=== PATIENT | male | born 1945 | race Caucasian/White ===

== ENCOUNTER 2020-10-24 06:16 | Inpatient (IN) | payer MEDICARE, OTHER ==
[2020-10-24 06:58] LABS: BASOPHIL 0.3 % (0-2); EOSINOPHIL 0.1 % (0-7); HGB 18.6 g/dl (13.2-18.0); LYMPHOCYTE 2.8 % (15-48); MCH 33.6 pg (25.0-31.0); MCHC 35.1 g/dL (32.0-36.0); MCV 95.8 fL (78.0-100.0); MONOCYTE 9.5 % (0-12); MPV 11.2 fL (6.0-9.5); NEUTROPHIL 86.5 % (41-80); NRBC 0; PLT 175 K/uL (150-400); RBC 5.53 M/uL (4.70-6.00); RDW 13.2 % (11.5-14.0)
[2020-10-24 07:05] LABS: WBC 19.8 K/uL (4.0-10.5)
[2020-10-24 07:17] LABS: INR 1.24 (0.9-1.2); PROTHROMBIN TIME 14.8 SECONDS (11.4-13.6); PTT 27.5 SECONDS (22.2-34.7)
[2020-10-24 07:37] LABS: ALBUMIN 3.5 g/dL (3.4-5.0); ALKALINE PHOSHATASE 126 U/L (46-116); ALT 103 U/L (16-63); AST 202 U/L (15-37); BILIRUBIN - TOTAL 2.6 mg/dL (0.2-1.0); BUN 32 mg/dL (7-18); BUN/CREAT RATIO (CALC) 18.4 RATIO; CHLORIDE 98 mmol/L (98-107); CO2 (BICARBONATE) 17 mmol/L (21-32); CPK 481 U/L (39-308); CREATININE 1.74 mg/dL (0.67-1.17); GLOBULIN (CALCULATION) 3.8 g/dL; GLUCOSE 287 mg/dL (74-106); LACTIC ACID 3.4 mmol/L (0.4-1.9); LIPASE 58 U/L (73-393); TOTAL PROTEIN 7.3 g/dL (6.4-8.2)
[2020-10-24 11:01] LABS: BILIRUBIN NEGATIVE (NEGATIVE); BLOOD 3+ Ery/uL (NEGATIVE); COLOR YELLOW (YELLOW); GLUCOSE (U) 3+ mg/dL (NORMAL); LEUKOCYTES NEGATIVE Leu/uL (NEGATIVE); NITRITE NEGATIVE (NEGATIVE); PROTEIN 2+ mg/dL (NEGATIVE); SPECIFIC GRAVITY >=1.030 (1.001-1.030); UROBILINOGEN 0.2 mg/dL (0.2-1.0); pH 5.5 (5.0-9.0)
[2020-10-24 11:05] LABS: ECSTASY (MDMA) NEGATIVE (NEGATIVE); MARIJUANA (THC) NEGATIVE (NEGATIVE); METHADONE NEGATIVE (NEGATIVE); OPIATES POSITIVE (NEGATIVE)
[2020-10-24 11:05] LABS: CLARITY HAZY (CLEAR)
[2020-10-24 11:06] LABS: AMPHETAMINES NEGATIVE (NEGATIVE); BARBITURATES NEGATIVE (NEGATIVE); OXYCODONE NEGATIVE (NEGATIVE)
[2020-10-24 11:24] LABS: SQUAMOUS EPITHELIAL CELLS RARE
[2020-10-24 11:25] LABS: GRANULAR CASTS TRACE
[2020-10-24] MEDS ORDERED: LASIX20 MG PO (16:35)
[2020-10-24] MEDS ORDERED: POTASSIUM CHLO20 ME1 PO (16:36)
[2020-10-24] MEDS ORDERED: COREG 6.25MG6.25 MG PO (16:36)
[2020-10-24] MEDS ORDERED: PLAVIX75 M1 PO (16:37)
[2020-10-24] MEDS ORDERED: ZESTRIL5 MG PO (16:37)
[2020-10-24] MEDS ORDERED: ELIQUIS5 MG PO (16:37)
[2020-10-24] MEDS ORDERED: METFORMIN HCL500 MG PO (16:38)
[2020-10-24] MEDS ORDERED: LIPITOR40 MG PO (16:38)
[2020-10-24] MEDS ORDERED: ISOSORBIDE MONO60 M1 PO (16:40)
[2020-10-25 06:20] LABS: BASOPHIL 0.3 % (0-2); EOSINOPHIL 0.4 % (0-7); HCT 52.5 % (42.0-52.0); HGB 17.8 g/dl (13.2-18.0); LYMPHOCYTE 3.6 % (15-48); MCH 33.3 pg (25.0-31.0); MCHC 33.9 g/dL (32.0-36.0); MCV 98.3 fL (78.0-100.0); MONOCYTE 9.2 % (0-12); MPV 11.3 fL (6.0-9.5); NEUTROPHIL 85.6 % (41-80); NRBC 0; PLT 150 K/uL (150-400); RBC 5.34 M/uL (4.70-6.00); RDW 13.4 % (11.5-14.0); WBC 23.8 K/uL (4.0-10.5)
[2020-10-25 06:50] LABS: BUN/CREAT RATIO (CALC) 20.9 RATIO; CREATININE 1.96 mg/dL (0.67-1.17); MAGNESIUM 1.9 mg/dL (1.8-2.4); POTASSIUM 4.4 mmol/L (3.5-5.1)
--- NOTE | 2020-10-25 10:17 | NUR ---
0900- PT WAS FORGET AT TIMES THIS AM BUT ALERT AND ORIENTED. PT WBC 23.8 ELEVATED FRM PRIOR. MD WAS NOTIFIED, PT IS ALSO IN AFIB WITH RATE AROUND 108. PT ASYMPTOMATIC IN ROOM. JOB ANALYSIS MANAGER'S REPORTED TO RN THAT THEY ATTEMPTED TO GET PT OUT OF BED AND PT WAS TOO WEAK. NOTIFIED AND ORDERED A PT/OT EVAL. PT REPORTED TO CORN HUSK BALER THAT HE DOESNT TAKE HIS HOME MEDS AND ITS " JUST BECAUSE HE DOESNT WANT TOO" PT WAS EDUCATED ON HOW IMPORTANT HIS MEDICINE WAS FOR HIS HEART AND BLOOD PRESSURE. PTS LACTIC WAS 3.4 ON ADMISSION AND A REPEAT WAS NOT DRAWN. NOTIFIED. PT IS ON THE LIST FOR AN ECHO TODAY.
--- NOTE | 2020-10-25 13:54 | NUR ---
NOTIFIED MD AT 1350 ABOUT ELEVATED WBC COUNT 23.8 AND LACTIC 3.2, NO REPEAT DRAWN, URINE WBC 1-5 H, MD ORDERED URINE CULTURE AND ROCEPHIN.
--- NOTE | 2020-10-25 16:53 | NUR ---
MD NOTIFIED ABOUT WBC 23.8, LACTIC 3.2, LOW DAILY URINE OUTPUT 200 CC ONLY, AND TEA COLORED URINE. MD ORDERED BOLUS 1000ML NS, ROCEPHIN, AND A REPEAT LACTIC FOR THE AM.
[2020-10-26 09:19] LABS: BASOPHIL 0.2 % (0-2); EOSINOPHIL 0 % (0-7); HCT 49.4 % (42.0-52.0); LYMPHOCYTE 3.9 % (15-48); MCH 32.8 pg (25.0-31.0); MCHC 32.4 g/dL (32.0-36.0); MCV 101.2 fL (78.0-100.0); MONOCYTE 7.2 % (0-12); MPV 10.9 fL (6.0-9.5); NEUTROPHIL 87.6 % (41-80); NRBC 0; PLT 144 K/uL (150-400); RBC 4.88 M/uL (4.70-6.00); RDW 13.5 % (11.5-14.0)
[2020-10-26 09:28] LABS: ALBUMIN 2.6 g/dL (3.4-5.0); BILIRUBIN - TOTAL 2.4 mg/dL (0.2-1.0); BUN/CREAT RATIO (CALC) 27.5 RATIO; CREATININE 1.82 mg/dL (0.67-1.17); GLOBULIN (CALCULATION) 3.7 g/dL; MAGNESIUM 1.8 mg/dL (1.8-2.4); POTASSIUM 4.6 mmol/L (3.5-5.1); TOTAL PROTEIN 6.3 g/dL (6.4-8.2)
--- NOTE | 2020-10-26 16:44 | NUR ---
THIS IS A 75 YEAR OLD REPORTS THAT HE HAS 2 ROOM MATES THAT LIVES WITH HIM. UP INTO RECENTLY HE WAS INDEPENDENT WITH ADL;S BUT DUE TO ACUTE ILLNESS (ELKE) ONE OF THE ROOMMATES HELPS WITH ADL'S. SHE COOKS AND HELPS GET TO SHOWER. HE REPORTS HE HAS NO DME HE USES CURRENTLY. WHEN I ASKED ABOUT HIS INTEREST FOR SKILLED REHAB AFTER THERAPY MADE DETERMINATION IF HE WOULD AGREE TO GO- HE REPLIED NO TO SKILLED THERAPY "I DO NOT LIKE THOSE PLACES". HE DID AGREE TO HAVE A HOME HEALTH AGENCY TO COME SEE HIM, HE DID NOT HAVE A PREFERENCE. HE WOULD LIKE TO HAVE ONE THAT ACCEPTED HIS INSURANCE. PER [facility]- [facility] WOULD NOT ACCEPT [facility] WILL NOT ACCEPT [facility] AT THIS TIME. [facility] TRYING TO REACH OUT TO OTHER FACILITIES TO SEE IF THEY CAN ACCEPT [facility]
[2020-10-27 12:31] LABS: BASOPHIL 0.2 % (0-2); EOSINOPHIL 0.3 % (0-7); HCT 41.7 % (42.0-52.0); LYMPHOCYTE 5.5 % (15-48); MCH 33.5 pg (25.0-31.0); MCHC 33.6 g/dL (32.0-36.0); MCV 99.8 fL (78.0-100.0); MONOCYTE 7.4 % (0-12); MPV 11.2 fL (6.0-9.5); NEUTROPHIL 85.5 % (41-80); NRBC 0; PLT 148 K/uL (150-400); RBC 4.18 M/uL (4.70-6.00); RDW 13.5 % (11.5-14.0); WBC 15.8 K/uL (4.0-10.5)
[2020-10-27 12:44] LABS: BUN/CREAT RATIO (CALC) 28.5 RATIO; CREATININE 1.65 mg/dL (0.67-1.17); POTASSIUM 4.6 mmol/L (3.5-5.1)
[2020-10-28 03:44] LABS: BASOPHIL 0.1 % (0-2); EOSINOPHIL 0.3 % (0-7); HCT 39.8 % (42.0-52.0); HGB 13.2 g/dl (13.2-18.0); LYMPHOCYTE 6.2 % (15-48); MCH 33.4 pg (25.0-31.0); MCHC 33.2 g/dL (32.0-36.0); MCV 100.8 fL (78.0-100.0); MONOCYTE 8.3 % (0-12); MPV 11.1 fL (6.0-9.5); NEUTROPHIL 84.1 % (41-80); NRBC 0; PLT 157 K/uL (150-400); RBC 3.95 M/uL (4.70-6.00); RDW 13.4 % (11.5-14.0); WBC 14.5 K/uL (4.0-10.5)
[2020-10-28 04:05] LABS: ALBUMIN 2.3 g/dL (3.4-5.0); BILIRUBIN - TOTAL 1.4 mg/dL (0.2-1.0); BUN/CREAT RATIO (CALC) 27.3 RATIO; CREATININE 1.54 mg/dL (0.67-1.17); GLOBULIN (CALCULATION) 3.6 g/dL; POTASSIUM 4.2 mmol/L (3.5-5.1); TOTAL PROTEIN 5.9 g/dL (6.4-8.2)
--- NOTE | 2020-10-28 19:40 | NUR ---
PATIENT SON, PETR BAILEY CALLED TODAY TO CHECK ON FATHER. SON INFORMED ME THE HOUSE WAS INFESTED WITH BEDBUGS AND THIS WAS NOT THE FIRST INCIDENT. THE HOUSE IS IN TERRIBLE LIVING CONDITIONS DUE TO SUPPOSED DRUG ADDICT ROOM MATES. THE PATIENT ALLOWS PEOPLE OFF THE STREET TO LIVE WITH HIM AND TAKE ADVANTAGE OF HIM ACCORDING TO SON. SON STATED THEY TRIED TO USE PATIENT BANK ACCOUNT AND HE HAD TO TAKE OVER FINANCIAL TO ASSIST PARENT. PARENT AND SON HAVE [place] RELATIONSHIP DUE TO FATHERS CONFUSION AT TIMES. SON IS REQUESTING ADMINISTRATOR SOCIAL WELFARE LIVING TO ASSIST FATHER SINCE HE IS DETERIORATING IN HEALTH AND NON-COMPLIANT WITH MEDICATIONS. ESPECIALLY SINCE HIS LIVING CONDITIONS ARE UNLIVABLE. NEISHA WAS NOTIFIED TODAY OF THIS SITUATION AND IS LOOKING INTO IT. PETR BAILEY (SON)- CONTACT FOR MORE INFORMATION. SON WILL VISIT 10/29 AND REQUEST TO SPEAK WITH REAL ESTATE OPERATIONS MANAGER.
[2020-10-29 05:51] LABS: BASOPHIL 0.4 % (0-2); EOSINOPHIL 0.7 % (0-7); HCT 43.7 % (42.0-52.0); HGB 14.6 g/dl (13.2-18.0); LYMPHOCYTE 9.5 % (15-48); MCH 33.3 pg (25.0-31.0); MCHC 33.4 g/dL (32.0-36.0); MCV 99.5 fL (78.0-100.0); MONOCYTE 9.3 % (0-12); NEUTROPHIL 78.3 % (41-80); NRBC 0; PLT 176 K/uL (150-400); RBC 4.39 M/uL (4.70-6.00); RDW 13.3 % (11.5-14.0); WBC 12.2 K/uL (4.0-10.5)
[2020-10-29 06:11] LABS: ALBUMIN 2.2 g/dL (3.4-5.0); BILIRUBIN - TOTAL 1.6 mg/dL (0.2-1.0); BUN/CREAT RATIO (CALC) 21.3 RATIO; CREATININE 1.5 mg/dL (0.67-1.17); GLOBULIN (CALCULATION) 3.6 g/dL; MAGNESIUM 1.7 mg/dL (1.8-2.4); POTASSIUM 4.7 mmol/L (3.5-5.1); TOTAL PROTEIN 5.8 g/dL (6.4-8.2)
--- NOTE | 2020-10-29 13:37 | NUR ---
10/29/20 Mr. Marin declined a SNF placement. He will accept HH. However, [facility] have declined to accept patient. - Mr. Marin reports to have a rw, w/c and 3in1. His son, Irvin Marin, , was contacted by telephone with patient's permission. Per nursing, Irvin Marin had requested Assisted Living. Irvin Marin was informed that Assisted Living would be cost prohibited and that Me. Marin declined SNF. Irvin Marin reports to be able to drive his father to outpatient PT.
[2020-10-30 09:16] LABS: HCT 41.7 % (42.0-52.0); HGB 14.2 g/dl (13.2-18.0); MCH 33.6 pg (25.0-31.0); MCHC 34.1 g/dL (32.0-36.0); MCV 98.8 fL (78.0-100.0); MPV 10.7 fL (6.0-9.5); RBC 4.22 M/uL (4.70-6.00); RDW 13.2 % (11.5-14.0); WBC 11.8 K/uL (4.0-10.5)
[2020-10-30 09:41] LABS: ALBUMIN 2.1 g/dL (3.4-5.0); BILIRUBIN - DIRECT 0.8 mg/dL (0.00-0.20); BILIRUBIN - TOTAL 1.4 mg/dL (0.2-1.0); BUN/CREAT RATIO (CALC) 19.6 RATIO; CREATININE 1.53 mg/dL (0.67-1.17); GLOBULIN (CALCULATION) 3.5 g/dL; POTASSIUM 4.1 mmol/L (3.5-5.1); TOTAL PROTEIN 5.6 g/dL (6.4-8.2)
--- NOTE | 2020-10-30 15:39 | NUR ---
10/30/20 Mr. Marin will be transferred to [facility] when a bed is available.
== END 2020-10-30 22:30 | disposition other institution (70) | DRG 280 ==
LOC: FER 06:16 → FTCU 12:01
PROVIDERS: Emergency Medicine Emergency Medical Services; Student in an Organized Health Care Education/Training Program; ADMIT Internal Medicine
DX: I48.20 Chronic atrial fibrillation, unspecified (principal); I21.A1 Myocardial infarction type 2; K85.10 Biliary acute pancreatitis without necrosis or infection; J96.91 Respiratory failure, unspecified with hypoxia; N17.9 Acute kidney failure, unspecified; G91.2 (Idiopathic) normal pressure hydrocephalus; I13.0 Hypertensive heart and chronic kidney disease with heart failure and stage 1 through stage 4 chronic kidney disease, or unspecified chronic kidney disease; F05 Delirium due to known physiological condition; I50.20 Unspecified systolic (congestive) heart failure; Z20.822 Contact with and (suspected) exposure to COVID-19; K83.8 Other specified diseases of biliary tract; E11.65 Type 2 diabetes mellitus with hyperglycemia; I49.5 Sick sinus syndrome; E78.00 Pure hypercholesterolemia, unspecified; I25.10 Atherosclerotic heart disease of native coronary artery without angina pectoris; E11.22 Type 2 diabetes mellitus with diabetic chronic kidney disease; K80.20 Calculus of gallbladder without cholecystitis without obstruction; Z95.5 Presence of coronary angioplasty implant and graft; Z95.0 Presence of cardiac pacemaker; I25.2 Old myocardial infarction; Z91.14 Patient's other noncompliance with medication regimen
CPT/HCPCS: 36415; 70450; 71045; 71250; 72125; 72131; 76705; 80048; 80053; 80076; 80305; 81001; 82140; 82150; 82550; 82962; 83036; 83605; 83690; 83735; 83874; 83880; 84439; 84443; 84484; 85025; 85610; 85730; 87040; 87076; 87088; 87186; 93005; 97162; 97166; 97530; 97530-GP; 97535; C9113; G0480; J0696; J1170; J1650; J1940; J2270; J2405; J2543; J7030; U0002